=== PATIENT | male | born 1960 | race Caucasian/White ===

== ENCOUNTER 2017-12-01 18:20 | Outpatient (CLI) | payer OTHER ==
[~2017-12-01] VITALS: Ht 177.8 cm; Wt 81.2 kg
--- NOTE | ~2017-12-01 | OP ---
PATIENT NAME: JOANNE GREEN MEDICAL RECORD: [id number] :60 [facility] ADMISSION DATE:12/01/17 SURGEON: ANGELINA QUESADA MD DATE OF OPERATION: 12/02/2017 PROCEDURES: 1. PTCA stent left circumflex. 2. Selective coronary angiography. INDICATION: Angina and coronary artery disease. PROCEDURE IN DETAIL: After informed consent was obtained and after a detailed description of risks, benefits as well as alternative therapies, the patient elected to proceed with angiogram and angioplasty. The right radial area was prepped and draped in normal sterile fashion. Right radial artery was cannulated via modified Seldinger technique with placement of 6-Cymraes sheath. All catheters exchanged through this sheath. FINDINGS: The left circumflex has 95% stenosis mid vessel. This was addressed with a 2.5 x 18 mm Matt stent. Result was 0% residual stenosis. OVERALL IMPRESSION: Successful percutaneous transluminal coronary angioplasty stent of the left circumflex going from 95% initial stenosis to 0% residual stenosis. TRANSINT:[id number] Voice Confirmation ID: [id number] DOCUMENT ID: [id number] ANGELINA QUESADA MD at 1725 CC: [id number] DICTATION DATE: 12/02/17 1300 HOSPITAL NURSE: 12/02/17 1326 ADM IN [id number] [place] [address]
--- NOTE | ~2017-12-01 | HEMODYNAMI ---
PATIENT:JOANNE GREEN MEDICAL RECORD: [id number] : 60 LOCATION:[facility] D.2114 ADMISSION DATE: 12/01/17 Generatedon:12/02/201713:07 Patient name: JOANNE GREEN Patient #: [id number] SSN: D OB: 1960 Date of study: 12/02/2017 Page: Of Hemodynamic Procedure Report Patient Data Patient Demographics Procedure consent was obtained First Name: JOANNE Gender: Male Last Name: PETER : 1960 [facility] Initial: R Age: 57 year(s) Patient #: [id number] Race: Unknown Additional ID: [id number] Contact details Address: [address] [place] [address] State: [place] City: [place] Zip code: [address] Past Medical History Allergies: No known allergies Admission Admission Data Admission Date: 12/01/2017 Admission Time: 18:20 Room #: D.2114 Lab Results Lab Result Date: 11/26/2017 Lab Result Time: 0:00 Biochemistry Name Units Result Min Max BUN mg/dl 11 --(-*--)-- 7 18 Creatinine mg/dl 0.9 --(-*--)-- 0.6 1.3 CBC Name Units Result Min Max Hemoglobin g/dl 14.9 --(-*--)-- 13.5 17.5 Procedure Procedure Types Cath Procedure PCI Procedure Coronary Stent Coronary Stent Initial Procedure Description Procedure Date Procedure Date: 12/02/2017 Procedure Start Time: 12:53 Procedure End Time: 13:02 Procedure Staff Name Function Leticia Medel RT Scrub Roberth Doyle RN Nurse Joel Cheung MD Performing Physician Shawna Kraft RT Monitor Procedure Data Cath Procedure Fluoroscopy Diagnostic fluoroscopy Total fluoroscopy Time: 2.7 time: 2.7 min min Diagnostic fluoroscopy Total fluoroscopy dose: 408 dose: 408 mGy mGy Contrast Material Contrast Material Type Amount (ml) Isovue 370 0 Isovue 300 53 Entry Location Entry Primary Successful Side Size Upsize Upsize Entry Closure Cadet ccessful Closure Location (Fr) 1 (Fr) 2 (Fr) Remarks Device Remarks Radial Right 6 Fr Manual artery Short Compression Estimated blood loss: 10 ml Procedure Complications No complications Procedure Medications Medication Administration Route Dosage Oxygen NC 2 l/min Lidocaine 2% added to field 20 Heparin Flush Bag added to field 2 bags (1000units/500ml NS) 0.9% NaCl I.V. 100 ml/hr Plavix P.O. 75 mg Versed I.V. 2 mg Fentanyl I.V. 100 mcg Heparin Bolus I.V. 4000 units Versed I.V. 2 mg Fentanyl I.V. 100 mcg Fentanyl I.V. 50 mcg Fentanyl I.V. 50 mcg Radial Cocktail I.A. 1 syringe (Verapomil 2mg/Nitro 400mcg/Heparin 1500units) Hemodynamics Rest HGB: 14.9 (g/dl) Heart Rate: 74 (bpm) Snapshots Pre Cath Intra NCS Post Cath Vital Signs Time Heart Resp SPO2 etCO2 NIBP (mmHg) Rhythm Pain Sedation Rate (ipm) (%) (mmHg) Status Level (bpm) 12:13:10 84 16 94 23.2 120/87(105) NSR 0 (11) 10(A) , No pain 12:17:18 78 17 95 18 137/87(121) NSR 0 (11) 10(A) , No pain 12:21:30 84 16 94 20.2 120/68(101) NSR 0 (11) 10(A) , No pain 12:25:40 89 17 94 23.2 102/76(91) NSR 0 (11) 10(A) , No pain 12:29:43 77 16 94 9.7 113/76(99) NSR 0 (11) 10(A) , No pain 12:33:51 71 19 94 15.7 124/76(102) NSR 0 (11) 10(A) , No pain 12:38:05 82 18 95 34.5 115/70(95) NSR 0 (11) 10(A) , No pain 12:42:11 80 15 94 26.2 127/84(102) NSR 0 (11) 10(A) , No pain 12:53:13 83 15 93 44.2 120/68(88) NSR 0 (11) 9(A) , No pain 12:47:17 86 15 93 45.7 110/81(89) NSR 0 (11) 9(A) , No pain 13:04:07 81 16 94 44.2 106/68(92) NSR 0 (11) 10(A) , No pain Medications Time Medication Route Dose Verified Delivered Reason Not es Effectiveness by by 12:25:44 Oxygen NC 2 l/min Joel Leep used for Jonatan Doyle RN procedure 12:27:05 Heparin Flush added 2 bags Joel Maldonado used for Bag to Jonatan Cheung MD procedure (1000units/500ml field NS) 12:27:15 0.9% NaCl I.V. 100ml/hr Joel Lepe Per physician Jonatan Doyle RN 12:27:58 Lidocaine 2% added 20ml Joel Maldonado for local to vial Jonatan Cheung MD anesthetic field 12:28:23 Plavix P.O. 75 mg Joel Lepe for Jonatan Doyle RN antiplatelet therapy 12:42:25 Versed I.V. 2 mg Joel Lepe for sedation Jonatan Doyle RN 12:42:31 Fentanyl I.V. 100 mcg Joel Lepe for sedation Jonatan Doyle RN 12:48:46 Versed I.V. 2 mg Joel Lepe for sedation Jonatan Doyle RN 12:48:49 Fentanyl I.V. 100 mcg Joel Lepe for sedation Jonatan Doyle RN 12:50:16 Radial Cocktail I.A. 1 oJel Maldonado for (Verapomil syringe Jonatan Cheung MD vasodilation 2mg/Nitro 400mcg/Heparin 1500units) 12:51:04 Fentanyl I.V. 50 mcg Joel Lepe for sedation Jonatan Doyle RN 12:52:07 Heparin Bolus I.V. 4000 Joel Lepe for rosalio ified units Jonatan Doyle RN anticoagulation with dr cheung 13:02:05 Fentanyl I.V. 50 mcg Joel Lepe for sedation Jonatan Doyle RN Procedure Log Time Note 12:08:16 Time tracking: Regular hours (M-F 7:00 - 5:00) 12:08:16 Shawna ALMEIDA(R) sent for patient. Start room use. 12:08:20 Plan of Care:Hemodynamics will remain stable., Cardiac rhythm will remain stable., Comfort level will be maintained., Respiratory function will remain adequate., Patient/ family verbilizes understanding of procedure., Procedure tolerated without complication., Recovers from procedure without complications.. 12:08:25 Patient received from Med II to CCL 2 Alert and oriented. Tansferred to table in Supine position. 12:08:26 Correct patient and procedure confirmed by team. 12:08:27 ECG and BP/O2 sat monitors applied to patient. 12:08:29 Signed procedure consent form obtained from patient. 12:08:30 Vital chart was started 12:11:58 Baseline sample Acquired. 12:12:05 Rhythm: sinus rhythm 12:12:08 Full Disclosure recording started 12:12:18 H&P Date Dictated: 12/01/2017 Within 30 days and on chart.. 12:12:20 Pre-procedure instructions explained to patient. 12:12:23 Patient NPO since Midnight. 12:12:30 Patient allergic to No known allergies 12:12:33 Is the patient allergic to Iodine/contrast media? No. 12:12:36 Was the patient premedicated? Yes 12:12:37 Is patient on blood thinner?Yes 12:12:41 ACC The patient was administered the following blood thiners within the last 24 hours: ACCPlavix 12:12:44 Patient diabetic? No. 12:12:46 Snore? Yes 12:12:49 Sleep apnea? No 12:12:55 Dentures? No ? 12:13:05 Patient pain scale 0/10 pressure. 12:13:14 IV patent on arrival in left forearm with 0.9% NaCl at O. 12:13:19 Lab results completed and on chart. 12:13:23 Right Radial & Right Groin area was prepped with chlora-prep and draped in sterile fashion 12:13:24 Alarms reviewed by R. N. 12:13:25 Sharps counted by scrub and verified by R.N. 12:13:26 Physician paged 12:25:44 Oxygen 2 l/min NC was administered by Roberth Doyle RN; used for procedure; 12:27:05 Heparin Flush Bag (1000units/500ml NS) 2 bags added to field was administered by Joel Cheung MD; used for procedure; 12:27:15 0.9% NaCl 100ml/hr I.V. was administered by Roberth Dyole RN; Per physician; 12:27:58 Lidocaine 2% 20ml vial added to field was administered by Joel Cheung MD; for local anesthetic; 12:28:23 Plavix 75 mg P.O. was administered by Roberth Doyle RN; for antiplatelet therapy; 12:35:05 Physician arrived 12:35:06 --------ALL STOP TIME OUT------ 12:35:07 Final Timeout: patient, procedure, and site verified with staff and physician. All members of the team are in agreement. 12:35:22 Right Radial & Right Groin site verified by team. 12:35:27 Physical assessment completed. ASA score P 2 - A patient with mild systemic disease as per Joel Cheung MD. 12:35:31 Sedation plan: IV Moderate Sedation Medication:Versed, Fentanyl 12:36:07 Zero performed for pressure channel P1 12:36:30 Use device set Femoral Dx 12:36:33 Medline Cath Pack ([id number]) opened to sterile field. 12:36:33 Bag Decanter (2002S) opened to sterile field. 12:36:33 ACIST Syringe (58545) opened to sterile field. 12:36:34 DIAGNOSTIC WIRE .035 260cm J wire (948405) opened to sterile field. 12:36:35 ACIST Hand Control (47833) opened to sterile field. 12:36:36 ACIST Manifold (11509) opened to sterile field. 12:36:37 DIAGNOSTIC Multipack 5Fr catheter set (KG7508) opened to sterile field. 12:36:38 Tegaderm 4 x 4 (1626W) opened to sterile field. 12:37:06 SHEATH 6Fr Prelude Radial ([id number]) opened to sterile field. 12:37:21 CHOICE PT Extra Support 182cm wire ([id number]) opened to sterile field. 12:37:21 INFLATOR Merit BasixCompak (FH8849) opened to sterile field. 12:42:25 Versed 2 mg I.V. was administered by Roberth Doyle RN; for sedation; 12:42:31 Fentanyl 100 mcg I.V. was administered by Roberth Doyle RN; for sedation; 12:48:46 Versed 2 mg I.V. was administered by Roberth Doyle RN; for sedation; 12:48:49 Fentanyl 100 mcg I.V. was administered by Roberth Doyle RN; for sedation; 12:50:16 Radial Cocktail (Verapomil 2mg/Nitro 400mcg/Heparin 1500units) 1 syringe I.A. was administered by Joel Cheung MD; for vasodilation; 12:51:04 Fentanyl 50 mcg I.V. was administered by Roberth Doyle RN; for sedation; 12:52:07 Heparin Bolus 4000 units I.V. was administered by Roberth Doyle RN; for anticoagulation; verified with dr cheung 12:53:13 Procedure started. 12:53:14 Full Disclosure recording started 12:53:25 Local anesthetic to right radial artery with Lidocaine 2% by Joel Cheung MD.INITIAL ACCESS ONLY 12:53:36 A 6 Fr Short sheath was inserted into the Right Radial artery 12:53:55 6 Fr XB 3.5 guide catheter was inserted over the wire 12:53:59 Choice pt wire advanced. 12:54:12 Wire advanced across lesion. 12:55:44 Inflate balloon Inflation number: 1 A EUPHORA 2.0 x 15 Balloon ([id number]) was prepped and advanced across the Mid CX, then inflated to 13 ROXANNE for 0:14 (min:sec). 12:56:07 Balloon removed over the wire. 12:57:05 Place stent Inflation Number: 2 A DONTAE RX 2.5 x 18 stent ([id number]) was prepped and advanced across the Mid CX. The stent was deployed at 11 ROXANNE for 0:11 (min:sec). 12:58:49 TR BAND Standard ([id number]) opened to sterile field. 12:59:03 Wire removed. 12:59:05 Guide catheter removed. 12:59:18 Sheath removed intact; hemostasis achieved with Manual Compression to the Right Radial artery. 12:59:20 Procedure ended.(Physican Out) 12:59:34 Fluoroscopy time 02.70 minutes. 12:59:43 Fluoroscopy dose: 408 mGy 12:59:43 Flurop Dose total: 408 12:59:49 Contrast amount:Isovue 370 0ml. 12:59:53 Contrast amount:Isovue 300 53ml. 12:59:54 Sharps counted by scrub and verified by R.N. 12:59:59 TR band inflated with 10cc of air. 13:00:00 Insertion/operative site no bleeding no hematoma. 13:00:02 Post Procedure Pulses reassessed and unchanged 13:00:07 Post-procedure physical assessment completed. ASA score P 2 - A patient with mild systemic disease as per Joel Cheung MD. 13:00:11 Post procedure rhythm: unchanged. 13:00:18 Estimated blood loss: 10 ml 13:00:23 Post procedure instruction explained to patient.Patient verbalizes understanding. 13:00:35 Procedure type changed to Cath procedure, PCI procedure, Coronary Stent, Coronary Stent Initial 13:00:40 Procedure and supply charges have been captured, reviewed, submitted and are correct. 13:01:43 Procedure Complication : No complications 13:02:05 Fentanyl 50 mcg I.V. was administered by Roberth Doyle RN; for sedation; 13:02:46 See physician's report for complete and final results. 13:02:49 Report given to Pre/Post Procedure Room. 13:02:54 Patient transfered to Pre/Post Procedure Room with Stretcher. 13:02:57 Procedure ended. 13:02:57 Full Disclosure recording stopped 13:03:00 End room use (Document Last) Intervention Summary Intervention Notes Time ActionType Lesion and Equipment Used Action# Pressure Duration Attributes 12:55:44 Inflate Mid CX EUPHORA 2.0 x 1 13 00:14 balloon 15 Balloon ([id number]) 12:57:05 Place stent Mid CX DONTAE RX 2.5 x 2 11 00:11 18 stent ([id number]) Device Usage Item Name Manufacture Quantity Catalog Number Hospital Part Current Minimal Lot# / Charge Number Stock Stock Serial# Code ACIST Syringe Acist 1 92598 021346 334758 789182 20 (04774) Medical Systems Inc Bag Decanter Microtek 1 2001S 933194 57316 297684 5 () Medical Inc. Medline Cath Cardinal 1 [id number] 773493 60628 133952 5 [facility]icare [facility] ([id number]) DIAGNOSTIC WIRE [facility] [place] 1 821329 569019 250689 829296 30 .035 260cm J wire (454800) ACIST Hand Acist 1 42108 793637 954677 484424 5 Control (54364) Medical Systems Inc ACIST Manifold Acist 1 18135 434062 387575 817115 5 (50871) Medical Systems Inc DIAGNOSTIC Cardinal 1 GI3804 939520 48189 262092 30 Multipack 5Fr Health catheter set (DH8169) Tegaderm 4 x 4 3M 1 1626W 539123 852835 592241 5 (1626W) SHEATH 6Fr Merit 1 [id number] 004065 711427 774307 5 Prelude Radial Medical ([id number]) INFLATOR Merit Merit 1 UL0453 111597 125644 613549 15 [employer]Rock[employer] Medical (FJ7729) CHOICE PT Extra [place] 1 [id number] 151847 223514 966521 5 Support 182cm Scientific wire ([id number]) EUPHORA 2.0 x Medtronic 1 [id number] 437660 554189 767515 5 [id number] 15 Balloon ([id number]) DONTAE RX 2.5 x Medtronic 1 [id number] 665126 2818649 102939 5 [id number] 18 stent ([id number]) TR BAND Terumo 1 [id number] 286335 514074 814822 40 Standard ([id number]) Signature Audit [place] Stage Time Signature Unsigned Intra-Procedure 12/02/2017 Shawna Kraft 1:06:57 PM RT(R) Signatures Monitor : Shawna Kraft Signature : RT Date : Time : [address] [place] [address]
--- NOTE | ~2017-12-01 | DS ---
PATIENT:JOANNE DOSS :60 MEDICAL RECORD: [id number] DISCHARGE SUMMARY ADMISSION DATE: 12/01/17 DISCHARGE DATE: DISCHARGE DIAGNOSES: 1. Angina. 2. Coronary artery disease. 3. PTCA and stent of left circumflex this admission. HOSPITAL COURSE: Mr. Doss presents with anginal symptomatology. He has a known 95% stenosis of the left circumflex. Underwent successful PTCA and stent of the left circumflex. Discharged home with no change in his medications as he is already on aspirin and Plavix. Will follow up with [facility] in 1 month. TRANSINT:[id number] Voice Confirmation ID: [id number] DOCUMENT ID: [id number] ANGELINA QUESADA MD at 1725 CC: [id number] DICTATION DATE: 12/02/17 1259 SENIOR MECHANICAL ENGINEER: 12/02/17 1329 ADM IN [facility] [address] [id number]
[~2017-12-01 18:20] MED LIST: ASPIRIN81 MG PO; PLAVIX75 MG PO; PRAVACHOL40 MG PO
[2017-12-01 19:00] VITALS: BP 115/62
[2017-12-02 00:02] VITALS: Ht 177.8 cm; Wt 81.2 kg
[2017-12-02 04:00] VITALS: BP 120/74
[2017-12-02 08:44] VITALS: BP 107/83
[2017-12-02 11:50] VITALS: BP 134/74
[2017-12-02 12:09] LABS: BASOPHILS 0.5 % (0-2); EOSINOPHILS 5.9 % (0-7); IMMATURE GRANULOCYTES 0.1 % (0-5); LYMPHOCYTES 27.8 % (15-50); MCH 31.6 pg (26.0-34.0); MCHC 34.1 g/dL (31.0-37.0); MCV 92.8 fL (80.0-100.0); MEAN PLATELET VOLUME 10.3 fL (7.4-10.4); MONOCYTES 9.4 % (2-11); NEUTROPHILS 56.3 % (40-80); PLATELET COUNT 329 10x3/uL (130-400); RBC 4.74 10x6/uL (4.20-6.10); RDW 13.6 % (11.5-14.5); WBC 8.5 10x3/uL (4.8-10.8)
[2017-12-02 12:24] LABS: CALC OSMOLALITY 263 mosm/kg (275-300); CALCIUM 9.5 mg/dL (8.5-10.1); CARBON DIOXIDE 22.1 mmol/L (21.0-32.0); CHLORIDE - SERUM 100 mmol/L (98-107); CREATININE - SERUM 0.8 mg/dL (0.6-1.3); GLUCOSE 91 mg/dL (74-106); SODIUM 131 mmol/L (136-145); UREA NITROGEN 15 mg/dL (7-18); eGFR NON AFRICAN AMERICAN > 90 mL/min (90-120)
[2017-12-02 12:30] LABS: POTASSIUM - SERUM 4.1 mmol/L (3.5-5.1)
== END 2017-12-02 17:55 | disposition home or self-care (01) ==
LOC: OBSVTIME → D.OPS 18:20 → D.M2 18:20 → D.CLR 18:20 → D.MS 18:20 → OBSVTIME 18:21 → D.MS 18:25 → D.M2 18:25 → D.CLR 12-02 13:11 → D.M2 12-02 13:11 → D.OPS 12-02 17:55 → D.CLR 12-02 17:55
PROVIDERS: Internal Medicine Interventional Cardiology
DX: I25.110 Atherosclerotic heart disease of native coronary artery with unstable angina pectoris (principal); Z95.5 Presence of coronary angioplasty implant and graft; E78.5 Hyperlipidemia, unspecified; F17.200 Nicotine dependence, unspecified, uncomplicated; Z79.82 Long term (current) use of aspirin; Z79.02 Long term (current) use of antithrombotics/antiplatelets; Z79.899 Other long term (current) drug therapy; Z01.812 Encounter for preprocedural laboratory examination

== ENCOUNTER 2018-09-29 14:37 | Inpatient (IN) | payer OTHER ==
[2018-09-29] VITALS (9 sets, daily range): BP systolic 119–143; BP diastolic 74–93; BMI 26.8
[~2018-09-29] VITALS: Ht 177.8 cm; Wt 78.1 kg
--- NOTE | ~2018-09-29 | EC ---
PATIENT:JOANNE GREEN DATE OF SERVICE: 09/29/18 SEX: M MEDICAL RECORD: [id number] DATE OF : 60 [facility] AGE OF PATIENT: 58 ADMISSION DATE: 09/29/18 REFERRING PHYSICIAN: INTERPRETING PHYSICIAN: ANGELINA CHEUNG MD ECHOCARDIOGRAM REPORT ECHO CHARGES 4 ECHO COMPLETE Date: 09/29/18 CLINICAL DIAGNOSIS: BILATERAL PE'S ECHOCARDIOGRAPHIC MEASUREMENTS (adult normal given) AC root (d.<3.7cm) 3.9 cm LV Septum d (<1.2 cm> 1.2 cm Valve Excursion 2.1 cm LV Septum (systole) 1.8 cm Left Atria (s.<4.0cm> 4.2 cm LVPW d(<1.2cm) 1.8 cm RV (d.<2.3cm) 4.5 cm LVPW (sytole) 2.1 cm LV diastole(<5.6CM) 6.7 cm MV E-F(>70mm/sec) cm LV systole 5.0 cm LVOT Diameter 2.4 cm MV exc.(>10mm) cm Est.ejection fraction (50-75%) % DOPPLER: LVIT cm/sec A 75.0 cm/sec E 87.0 cm/sec LA cm/sec RVSP 41 mmHg LVOT 134 cm/sec AOP1/2T m/s Asc. Ao 180 cm/sec RVOT cm/sec RA cm/sec PA cm/sec AV Gradient Peak 12.98mmHg AV Mean 6.53 mmHg AV Area 4.0 cm MV Gradient Peak 4.89 mmHg MV Mean 1.89 mmHg MV Area cm COMMENTS: Garbage Truck Driver: Emiliana ROBLES Turning Lathe Tender: 1 Dr. Cheung TAPE# PACS Pericardial Effusion N DATE OF SERVICE: 09/30/2018 PROCEDURE: Echocardiogram. FINDINGS: 1. Left ventricular chamber size is mildly dilated. Left ventricular systolic function is preserved. Overall ejection fraction estimated at 55%. 2. Left atrium, right atrium, right ventricular chamber sizes are as well mildly dilated with the left atrial size being 4.2 cm. 3. Valvular structures have normal structure and motion. ECHOCARDIOGRAM REPORT [id number] JOANNE GREEN 4. Doppler interrogation reveals mild mitral regurgitation, mild tricuspid regurgitation, no other valvular insufficiency or stenosis. Pulmonary systolic pressure is estimated 41 mmHg. 5. No cardiac source of neurologic emboli. TRANSINT:[id number] Voice Confirmation ID: [id number] DOCUMENT ID: [id number] ANGELINA CHEUNG MD CC: [id number] DICTATION DATE: 09/30/18 1128 MARKETING ROTATION ASSOCIATE: 09/30/18 1157 ADM IN [facility] [address] [id number]
[2018-09-29] MEDS ORDERED: HYDROCODON-ACE1 EA10 PO (14:50)
[2018-09-29] MEDS ORDERED: REVLIMID25 MG PO (14:51)
[2018-09-29] MEDS ORDERED: DECADRON4 MG PO (14:52)
--- NOTE | 2018-09-29 15:17 | NUR ---
ABG DONE BY RT, PATIENT WEENED DOWN TO [address] L[address] VIA NC PER DR. LOPEZ.
[2018-09-29 15:40] LABS: BASOPHILS 0.4 % (0-2); EOSINOPHILS 0 % (0-7); HEMATOCRIT 32.3 % (42.0-54.0); HEMOGLOBIN 10.1 g/dL (13.5-17.5); IMMATURE GRANULOCYTES 0.4 % (0-5); LYMPHOCYTES 10.9 % (15-50); MCH 29.4 pg (26.0-34.0); MCHC 31.3 g/dL (31.0-37.0); MCV 94.2 fL (80.0-100.0); MEAN PLATELET VOLUME 9.4 fL (7.4-10.4); MONOCYTES 2.7 % (2-11); NEUTROPHILS 85.6 % (40-80); PLATELET COUNT 332 10x3/uL (130-400); RBC 3.43 10x6/uL (4.20-6.10); RDW 14.4 % (11.5-14.5); WBC 7.5 10x3/uL (4.8-10.8)
[2018-09-29 15:57] LABS: INR 1.07 (0.85-1.17); PROTIME 13.4 SECONDS (11.6-15.0)
[2018-09-29 15:58] LABS: APTT 48.5 SECONDS (22.8-39.4)
[2018-09-29 16:04] LABS: ALBUMIN 3.1 g/dL (3.4-5.0); ALKALINE PHOSPHATASE 208 U/L (46-116); ALT (SGPT) 32 U/L (10-68); BILIRUBIN - TOTAL 0.45 mg/dL (0.2-1.3); CALC OSMOLALITY 276 mosm/kg (275-300); CALCIUM 7.4 mg/dL (8.5-10.1); CHLORIDE - SERUM 101 mmol/L (98-107); CREATININE - SERUM 0.9 mg/dL (0.6-1.3); POTASSIUM - SERUM 4.3 mmol/L (3.5-5.1); PROTEIN - SERUM 6.8 g/dL (6.4-8.2); SODIUM 136 mmol/L (136-145); UREA NITROGEN 22 mg/dL (7-18); eGFR NON AFRICAN AMERICAN > 90 mL/min (90-120)
[2018-09-29 16:09] LABS: GLUCOSE 140 mg/dL (74-106)
--- NOTE | 2018-09-29 16:23 | NUR ---
PTT 48.5, WILL RECHECK IN [address] LOPEZ.
[2018-09-29 16:27] LABS: TROPONIN-I 0.124 ng/mL (0.000-0.060)
[2018-09-29 17:00] LABS: HEMATOCRIT 33.1 % (42.0-54.0); HEMOGLOBIN 10.3 g/dL (13.5-17.5); MCH 29.5 pg (26.0-34.0); MCHC 31.1 g/dL (31.0-37.0); MCV 94.8 fL (80.0-100.0); MEAN PLATELET VOLUME 9.5 fL (7.4-10.4); RBC 3.49 10x6/uL (4.20-6.10); RDW 14.4 % (11.5-14.5); WBC 8.1 10x3/uL (4.8-10.8)
--- NOTE | 2018-09-29 17:20 | NUR ---
ICU WILL START HEPRIN DRIP WHEN RESULT OF PTT RETURNS.
[2018-09-29 17:35] LABS: INR 1.08 (0.85-1.17); PROTIME 13.5 SECONDS (11.6-15.0)
[2018-09-29 17:36] LABS: APTT 29.1 SECONDS (22.8-39.4)
--- NOTE | 2018-09-29 18:00 | NUR ---
PT ASSISTED INTO ICU BED FROM ER, PT AWAKE AND ALERT WITH LABORED BREATHING AND SOB, MONITORS ON AND WORKING, DR CHAVEZ CONSULTED AND MADE AWARE OF CONSULT. WILL CONTINUE TO OBSERVE.
--- NOTE | 2018-09-29 18:20 | MORECARE ---
CASE MANAGEMENT DISCHARGE SUMMARY PATIENT: JOANNE GREEN UNIT: [id number] ADM DATE: 09/29/18 AGE: 58 : 60 SEX: M ROOM/BED: D.2304 AUTHOR: ANJELICA BLANDON PHYSICIAN: REFERRING PHYSICIAN: SONIA CHRISTIANSON MD DATE OF SERVICE: 09/29/18 Discharge Plan Patient Name: JOANNE GREEN [facility] : 1960 Planned Disposition: Anticipated Discharge Date: Discharge Date: Expected LOS: Initial Reviewer: [email or web address] Initial Review Date: 09/29/2018 Generated: 09/29/18 7:20 pm Patient Name: JOANNE GREEN Page [id number] at 1820 All edits/amendments must be made on the electronic document DICTATION DATE: 09/29/181819 WIRE TEMPERER: CLINTON 09/29/181819 RPT#: [id number] NM DATE: STATUS: ADM IN [facility] [address] [place] [address] END OF REPORT
--- NOTE | 2018-09-29 21:55 | NUR ---
SANDWICH TRAY GIVEN PER PT REQUEST, VSS, DENIES OTHER NEEDS AT THIS TIME
[2018-09-30] VITALS (17 sets, daily range): BP systolic 102–139; BP diastolic 67–82; BMI 24.7
[2018-09-30 04:11] LABS: BASOPHILS 0.3 % (0-2); EOSINOPHILS 0.3 % (0-7); HEMATOCRIT 30.6 % (42.0-54.0); HEMOGLOBIN 9.4 g/dL (13.5-17.5); IMMATURE GRANULOCYTES 0.5 % (0-5); LYMPHOCYTES 19.9 % (15-50); MCH 29.5 pg (26.0-34.0); MCHC 30.7 g/dL (31.0-37.0); MCV 95.9 fL (80.0-100.0); MEAN PLATELET VOLUME 9.6 fL (7.4-10.4); MONOCYTES 12.2 % (2-11); NEUTROPHILS 66.8 % (40-80); PLATELET COUNT 306 10x3/uL (130-400); RBC 3.19 10x6/uL (4.20-6.10); RDW 14.5 % (11.5-14.5); WBC 7.9 10x3/uL (4.8-10.8)
[2018-09-30 04:55] LABS: CALC OSMOLALITY 285 mosm/kg (275-300); CHLORIDE - SERUM 103 mmol/L (98-107); GLUCOSE 98 mg/dL (74-106); MAGNESIUM - SERUM 2.2 mg/dL (1.8-2.4); PHOSPHOROUS 2.9 mg/dL (2.5-4.9); POTASSIUM - SERUM 4.3 mmol/L (3.5-5.1); SODIUM 141 mmol/L (136-145); TROPONIN-I 0.058 ng/mL (0.000-0.060); UREA NITROGEN 26 mg/dL (7-18); eGFR NON AFRICAN AMERICAN 81 mL/min (90-120)
[2018-09-30 05:17] LABS: CALCIUM 6.9 mg/dL (8.5-10.1)
[2018-09-30 09:06] LABS: % SATURATION 9 % (15-55); IRON 27 ug/dl (35-150); TOTAL IRON BIND CAPACITY 280 ug/dl (260-445); UNSAT IRON BIND CAPACITY 253 ug/dl (150-375)
--- NOTE | 2018-09-30 20:45 | MORECARE ---
CASE MANAGEMENT DISCHARGE SUMMARY PATIENT: JOANNE GREEN UNIT: [id number] ADM DATE: 09/29/18 AGE: 58 : 60 SEX: M ROOM/BED: D.2304 AUTHOR: ANJELICA BLANDON PHYSICIAN: REFERRING PHYSICIAN: SONIA CHRISTIANSON MD DATE OF SERVICE: 09/30/18 Discharge Plan Patient Name: JOANNE GREEN [facility] [facility] 1960 Planned Disposition: Home Anticipated Discharge Date: Discharge Date: Expected LOS: Initial Reviewer: [email or web address] Initial Review Date: 09/29/2018 Generated: 09/30/18 9:44 pm Last DP export: 09/29/18 5:20 p Patient Name: JOANNE GREEN Page [id number] at 2045 All edits/amendments must be made on the electronic document DICTATION DATE: 09/30/182043 SPIKE MACHINE FEEDER: CLINTON 09/30/182043 RPT#: [id number] DC DATE: STATUS: ADM IN [facility] [address] [place] [address] END OF REPORT
--- NOTE | 2018-09-30 20:51 | MORECARE ---
CASE MANAGEMENT DISCHARGE SUMMARY PATIENT: JOANNE GREEN UNIT: [id number] ADM DATE: 09/29/18 AGE: 58 : 60 SEX: M ROOM/BED: D.2304 AUTHOR: ANJELICA BLANDON PHYSICIAN: REFERRING PHYSICIAN: SONIA CHRISTIANSON MD DATE OF SERVICE: 09/30/18 Discharge Plan Patient Name: JOANNE GREEN [facility] [facility] 1960 Planned Disposition: Home Anticipated Discharge Date: Discharge Date: Expected LOS: Initial Reviewer: [email or web address] Initial Review Date: 09/29/2018 Generated: 09/30/18 9:51 pm DCPIA - Discharge Planning Initial Assessment Updated by [email or web address]: Evi Guzman on 09/30/18 8:46 pm * Is the patient Alert and Oriented? Yes * How many steps to enter\exit or inside your home? * PCP Brayan Newell * Pharmacy [facility] * Preadmission Environment Home Alone * ADLs Independent * Other Equipment walker, shower chair, elevated toilet, * List name and contact numbers for known caregivers / representatives who currently or will assist patient after discharge: Jaime Isaac [phone] * Verbal permission to speak to the caregivers and representatives has been obtained from the patient. N/A * Community resources currently utilized Home Health * Please name any agencies selected above. unknown provider - only evaluated thus far * Additional services required to return to the preadmission environment? No * Can the patient safely return to the preadmission environment? Yes * Has this patient been hospitalized within the prior 30 days at any hospital? Yes Last DP export: 09/30/18 7:45 pm Patient Name: JOANNE GREEN Page [id number] at 2050 All edits/amendments must be made on the electronic document DICTATION DATE: 09/30/182050 VIRTUALIZATION CONSULTANT: [place] 09/30/182050 RPT#: [id number] DC DATE: STATUS: ADM IN [facility] [address] [place] [address] END OF REPORT
--- NOTE | 2018-09-30 20:58 | MORECARE ---
CASE MANAGEMENT DISCHARGE SUMMARY PATIENT: JOANNE GREEN UNIT: [id number] ADM DATE: 09/29/18 AGE: 58 : 60 SEX: M ROOM/BED: D.2304 AUTHOR: BARBER,DOC PHYSICIAN: REFERRING PHYSICIAN: SONIA CHRISTIANSON MD DATE OF SERVICE: 09/30/18 Discharge Plan Patient Name: JOANNE GREEN Facility: [facility]:[place] : 1960 Planned Disposition: Home Anticipated Discharge Date: Discharge Date: Expected LOS: Initial Reviewer: [email or web address] Initial Review Date: 09/29/2018 Generated: 09/30/18 9:57 pm Comments DCP- Discharge Planning Updated by [email or web address]: Evi Guzman on 09/30/18 7:[address] Patient Name: JOANNE GREEN Admission Status: ER Accout number: [id number] Admission Date: 09-29-2018 : 1960 Admission Diagnosis:OTHER PULMONARY EMBOLISM WITHOUT ACUTE COR PULMONALE Attending: SONIA CHRISTIANSON Current LOS: 1 Anticipated DC Date: Planned Disposition: Home Primary Insurance: [employer] O POS Discharge Planning Comments: CM met with patient at bedside about discharge planning / needs. Patient states he lives alone. Patient states he plans to discharge to his home. States he will have family transport him home upon discharge. Patient states he has home health come to evaluate him but they haven't started yet. He doesn't recall which provider has evaluated him. If patient is still requiring 02 he may need walk test. Denies any discharge needs or concerns at this time.CM will continue to follow and assist as needed with discharge planning / needs. Administration Assistant: Evi Guzman DCPIA - Discharge Planning Initial Assessment Updated by [email or web address]: Evi Guzman on 09/30/18 8:46 pm * Is the patient Alert and Oriented? Yes * How many steps to enter\exit or inside your home? * PCP Brayan Newell * Pharmacy [facility] * Preadmission Environment Home Alone * ADLs Independent * Other Equipment walker, shower chair, elevated toilet, * List name and contact numbers for known caregivers / representatives who currently or will assist patient after discharge: Jaime Isaac [phone] * Verbal permission to speak to the caregivers and representatives has been obtained from the patient. N/A * Community resources currently utilized Home Health * Please name any agencies selected above. unknown provider - only evaluated thus far * Additional services required to return to the preadmission environment? No * Can the patient safely return to the preadmission environment? Yes * Has this patient been hospitalized within the prior 30 days at any hospital? Yes Last DP export: 09/30/18 7:51 pm Patient Name: JOANNE GREEN Page 49542 at 2058 All edits/amendments must be made on the electronic document DICTATION DATE: 09/30/182056 MARINE FIREFIGHTER: [place] 09/30/182056 RPT#: [id number] DC DATE: STATUS: ADM IN [facility] [address] [place] [address] END OF REPORT
[2018-10-01] VITALS (8 sets, daily range): BP systolic 107–120; BP diastolic 55–75; Ht 177.8 cm; Wt 78.1 kg
[2018-10-01 04:33] LABS: BASOPHILS 0.3 % (0-2); EOSINOPHILS 0.3 % (0-7); HEMOGLOBIN 8.7 g/dL (13.5-17.5); IMMATURE GRANULOCYTES 0.5 % (0-5); LYMPHOCYTES 18.6 % (15-50); MCH 29.8 pg (26.0-34.0); MCHC 31.1 g/dL (31.0-37.0); MCV 95.9 fL (80.0-100.0); MEAN PLATELET VOLUME 9.9 fL (7.4-10.4); MONOCYTES 6.3 % (2-11); PLATELET COUNT 285 10x3/uL (130-400); RBC 2.92 10x6/uL (4.20-6.10); RDW 14.6 % (11.5-14.5); WBC 7.7 10x3/uL (4.8-10.8)
[2018-10-01 05:02] LABS: ALBUMIN 2.9 g/dL (3.4-5.0); ALKALINE PHOSPHATASE 155 U/L (46-116); ALT (SGPT) 26 U/L (10-68); BILIRUBIN - TOTAL 0.21 mg/dL (0.2-1.3); CALC OSMOLALITY 282 mosm/kg (275-300); CARBON DIOXIDE 28.5 mmol/L (21.0-32.0); CHLORIDE - SERUM 103 mmol/L (98-107); CREATININE - SERUM 0.8 mg/dL (0.6-1.3); GLUCOSE 124 mg/dL (74-106); POTASSIUM - SERUM 4.3 mmol/L (3.5-5.1); PROTEIN - SERUM 6.1 g/dL (6.4-8.2); SODIUM 139 mmol/L (136-145); UREA NITROGEN 25 mg/dL (7-18); eGFR NON AFRICAN AMERICAN > 90 mL/min (90-120)
[2018-10-01 05:14] LABS: CALCIUM 6.2 mg/dL (8.5-10.1)
[2018-10-01 08:17] LABS: FOLATE (FOLIC ACID) - SERUM 15.9 ng/mL (>3.0)
--- NOTE | 2018-10-01 08:29 | NUR ---
UP IN BED EATING BREAKFAST AT THIS TIME. NO ACUTE DISTRESS NOTED. CALL LIGHT IN REACH. WILL CONTINUE PLAN OF CARE.
--- NOTE | 2018-10-01 08:30 | NUR ---
NOTED PHYSICIAN CONSULTS FOR DR QUESADA, DR CHAVEZ, AND DR VILLALOBOS. PHYSICIAN NOTES SEEN BY DR CHAVEZ AND DR QUESADA BUT NONE FROM DR VILLALOBOS. DR VILLALOBOS PAGED AT THIS TIME.
--- NOTE | 2018-10-01 08:38 | NUR ---
DR GARCÍA CLIENT RELATIONS ASSOCIATE FOR DR VILLALOBOS. NOTIFIED OF CONSULT.
--- NOTE | 2018-10-01 11:47 | NUR ---
SOAKING PIT OPERATOR HAS SEEN PT. ORDERS PLACED. ALL QUESTIONS AND CONCERNS ADDRESSED. NO ACUTE DISTRESS NOTED. WILL CONTINUE PLAN OF CARE.
--- NOTE | 2018-10-01 13:12 | NUR ---
PER DR CHRISTIANSON, WILL WATCH H&H. NO NEW ORDERS RECIEVED.
--- NOTE | 2018-10-01 13:37 | NUR ---
REPORT CALLED TO RECIEVING NURSE, WILL TRANSFER PT SHORTLY.
--- NOTE | 2018-10-01 14:20 | NUR ---
PT TRANSFERRED TO 2229 AT THIS TIME VIA WHEELCHAIR ACCOMPANIED BY HOSPITAL STAFF WITH ALL PERSOAL ITEMS. NO ACUTE DISTRESS NOTED. NO FURTHER ACTIONS.
--- NOTE | 2018-10-01 14:20 | NUR ---
PT RECIEVED TO ROOM 2229 VIA W/C. ALERT AND ORIENTED. NO DISTRESS NOTED. O2@2L NC IN PLACE. SALINE LOCK INTACT TO RIGHT FOREARM, EASILY FLUSHED WITH GOOD BLOOD RETURN. DENIES PAIN AT THIS TIME. ORIENTED TO ROOM, CL AND BED CONTROLS. DENIES FURTHER NEEDS AT THIS TIME. CL WITHIN REACH. ENCOURAGED HER TO CALL WITH NEEDS.
--- NOTE | 2018-10-01 19:30 | NUR ---
RECEIVED REPORT, ASSUMED CARE, NO S/S OF DISTRESS NOTED, CALL LIGHT IN REACH, BED LOWEST POSITION, WILL CONTINUE POC
[2018-10-02 02:28] VITALS: BP 116/54
[2018-10-02 04:09] VITALS: BP 116/60
--- NOTE | 2018-10-02 04:48 | NUR ---
I have reviewed this patient and I concur with the Shift Assessment completed by the Licensed Practical Nurse today this shift.
[2018-10-02 05:42] LABS: BASOPHILS 0.1 % (0-2); EOSINOPHILS 0 % (0-7); HEMATOCRIT 28.6 % (42.0-54.0); HEMOGLOBIN 8.9 g/dL (13.5-17.5); IMMATURE GRANULOCYTES 0.4 % (0-5); LYMPHOCYTES 25.1 % (15-50); MCH 29.7 pg (26.0-34.0); MCHC 31.1 g/dL (31.0-37.0); MCV 95.3 fL (80.0-100.0); MEAN PLATELET VOLUME 10.3 fL (7.4-10.4); MONOCYTES 6.6 % (2-11); NEUTROPHILS 67.8 % (40-80); PLATELET COUNT 311 10x3/uL (130-400); RDW 14.4 % (11.5-14.5); WBC 7.5 10x3/uL (4.8-10.8)
[2018-10-02 06:35] LABS: ALBUMIN 2.8 g/dL (3.4-5.0); ALKALINE PHOSPHATASE 134 U/L (46-116); ALT (SGPT) 22 U/L (10-68); BILIRUBIN - TOTAL 0.23 mg/dL (0.2-1.3); CARBON DIOXIDE 29.1 mmol/L (21.0-32.0); CHLORIDE - SERUM 104 mmol/L (98-107); CREATININE - SERUM 0.8 mg/dL (0.6-1.3); GLUCOSE 126 mg/dL (74-106); MAGNESIUM - SERUM 2.2 mg/dL (1.8-2.4); PHOSPHOROUS 1.9 mg/dL (2.5-4.9); POTASSIUM - SERUM 4.1 mmol/L (3.5-5.1); PROTEIN - SERUM 5.7 g/dL (6.4-8.2); SODIUM 137 mmol/L (136-145); eGFR NON AFRICAN AMERICAN > 90 mL/min (90-120)
[2018-10-02 06:36] LABS: CALC OSMOLALITY 277 mosm/kg (275-300); UREA NITROGEN 18 mg/dL (7-18)
[2018-10-02 06:37] LABS: FERRITIN 2275 ng/mL (3-244)
--- NOTE | 2018-10-02 06:40 | NUR ---
CRITICAL CALCIUM OF 6.0, CORRECTED CA IS 8.97
[2018-10-02 08:32] VITALS: BP 114/45
[2018-10-02 12:48] VITALS: BP 118/66
[2018-10-02 17:16] VITALS: BP 118/72
[2018-10-02 20:23] VITALS: BP 126/62
[2018-10-03 00:18] VITALS: BP 126/69
[2018-10-03 04:27] VITALS: BP 136/76
[2018-10-03 07:05] LABS: BASOPHILS 0.1 % (0-2); EOSINOPHILS 2.7 % (0-7); HEMATOCRIT 28.4 % (42.0-54.0); HEMOGLOBIN 8.8 g/dL (13.5-17.5); IMMATURE GRANULOCYTES 0.7 % (0-5); MCH 29.4 pg (26.0-34.0); MONOCYTES 8.8 % (2-11); NEUTROPHILS 44.7 % (40-80); PLATELET COUNT 318 10x3/uL (130-400); RBC 2.99 10x6/uL (4.20-6.10); RDW 14.6 % (11.5-14.5); WBC 8.5 10x3/uL (4.8-10.8)
[2018-10-03 07:17] LABS: CALC OSMOLALITY 289 mosm/kg (275-300); CARBON DIOXIDE 29.7 mmol/L (21.0-32.0); CHLORIDE - SERUM 107 mmol/L (98-107); CREATININE - SERUM 0.8 mg/dL (0.6-1.3); GLUCOSE 91 mg/dL (74-106); PHOSPHOROUS 2.1 mg/dL (2.5-4.9); SODIUM 145 mmol/L (136-145); UREA NITROGEN 15 mg/dL (7-18); eGFR NON AFRICAN AMERICAN > 90 mL/min (90-120)
[2018-10-03 08:05] LABS: POTASSIUM - SERUM 3.4 mmol/L (3.5-5.1)
[2018-10-03 08:06] LABS: CALCIUM 5.7 mg/dL (8.5-10.1)
--- NOTE | 2018-10-03 08:06 | NUR ---
CRITICAL CA LEVEL CALLING RADHA TO ADVISE AND RECEIVE NEW ORDERS
[2018-10-03 08:22] VITALS: BP 130/86
--- NOTE | 2018-10-03 11:39 | MORECARE ---
CASE MANAGEMENT DISCHARGE SUMMARY PATIENT: JOANNE GREEN UNIT: [id number] ADM DATE: 09/29/18 AGE: 58 : 60 SEX: M ROOM/BED: D.2229 AUTHOR: BARBER,DOC PHYSICIAN: REFERRING PHYSICIAN: SONIA CHRISTIANSON MD DATE OF SERVICE: 10/03/18 Discharge Plan Patient Name: JOANNE GREEN Facility: [facility]:[place] : 1960 Planned Disposition: Home Anticipated Discharge Date: Discharge Date: Expected LOS: Initial Reviewer: [email or web address] Initial Review Date: 09/29/2018 Generated: 10/03/18 12:39 pm Comments DCP- Discharge Planning Updated by [email or web address]: Evi Guzman on 09/30/18 7:[address] Patient Name: JOANNE GREEN Admission Status: ER Accout number: [id number] Admission Date: 09-29-2018 : 1960 Admission Diagnosis:OTHER PULMONARY EMBOLISM WITHOUT ACUTE COR PULMONALE Attending: SONIA CHRISTIANSON Current LOS: 1 Anticipated DC Date: Planned Disposition: Home [facility] Discharge Planning Comments: CM met with patient at bedside about discharge planning / needs. Patient states he lives alone. Patient states he plans to discharge to his home. States he will have family transport him home upon discharge. Patient states he has home health come to evaluate him but they haven't started yet. He doesn't recall which provider has evaluated him. If patient is still requiring 02 he may need walk test. Denies any discharge needs or concerns at this time.CM will continue to follow and assist as needed with discharge planning / needs. Principal Biostatistician: Evi Guzman DCPIA - Discharge Planning Initial Assessment Updated by [email or web address]: Evi Guzman on 09/30/18 8:46 pm * Is the patient Alert and Oriented? Yes * How many steps to enter\exit or inside your home? * PCP Brayan Newell * Pharmacy [facility] * Preadmission Environment Home Alone * ADLs Independent * Other Equipment walker, shower chair, elevated toilet, * List name and contact numbers for known caregivers / representatives who currently or will assist patient after discharge: Jaime Isaac [phone] * Verbal permission to speak to the caregivers and representatives has been obtained from the patient. N/A * Community resources currently utilized Home Health * Please name any agencies selected above. unknown provider - only evaluated thus far * Additional services required to return to the preadmission environment? No * Can the patient safely return to the preadmission environment? Yes * Has this patient been hospitalized within the prior 30 days at any hospital? Yes External Providers External Provider: OTHER-OTHER Next Contact Date: Service Request Date: Service Type: Resolution: Reviewer: Comments: Last DP export: 09/30/18 7:57 pm Patient Name: JOANNE GREEN Page [phone] at 1139 All edits/amendments must be made on the electronic document DICTATION DATE: 10/03/181137 SUPPLIER QUALITY ENGINEERING MANAGER: [place] 10/03/181137 RPT#: [id number] DC DATE: STATUS: ADM IN [facility] [address] [place] [address] END OF REPORT
--- NOTE | 2018-10-03 11:46 | MORECARE ---
CASE MANAGEMENT DISCHARGE SUMMARY PATIENT: JOANNE GREEN UNIT: [id number] ADM DATE: 09/29/18 AGE: 58 : 60 SEX: M ROOM/BED: D.2229 AUTHOR: BARBER,DOC PHYSICIAN: REFERRING PHYSICIAN: SONIA CHRISTIANSON MD DATE OF SERVICE: 10/03/18 Discharge Plan Patient Name: JOANNE GREEN Facility: [facility]:[place] : 1960 Planned Disposition: Home Anticipated Discharge Date: Discharge Date: Expected LOS: Initial Reviewer: [email or web address] Initial Review Date: 09/29/2018 Generated: 10/03/18 12:45 pm Comments DCP- Discharge Planning Updated by [email or web address]: Evi Guzman on 09/30/18 7:[address] Patient Name: JOANNE GREEN Admission Status: ER Accout number: [id number] Admission Date: 09-29-2018 : 1960 Admission Diagnosis:OTHER PULMONARY EMBOLISM WITHOUT ACUTE COR PULMONALE Attending: SONIA CHRISTIANSON Current LOS: 1 Anticipated DC Date: Planned Disposition: Home Primary Insurance: [facility] Discharge Planning Comments: CM met with patient at bedside about discharge planning / needs. Patient states he lives alone. Patient states he plans to discharge to his home. States he will have family transport him home upon discharge. Patient states he has home health come to evaluate him but they haven't started yet. He doesn't recall which provider has evaluated him. If patient is still requiring 02 he may need walk test. Denies any discharge needs or concerns at this time.CM will continue to follow and assist as needed with discharge planning / needs. Adjunct Professor Of Voice: Evi Guzman DCPIA - Discharge Planning Initial Assessment Updated by [id number]: Evi Guzman on 09/30/18 8:46 pm * Is the patient Alert and Oriented? Yes * How many steps to enter\exit or inside your home? * PCP Brayan Newell * Pharmacy [facility] * Preadmission Environment Home Alone * ADLs Independent * Other Equipment walker, shower chair, elevated toilet, * List name and contact numbers for known caregivers / representatives who currently or will assist patient after discharge: Jaime Isaac [phone] * Verbal permission to speak to the caregivers and representatives has been obtained from the patient. N/A * Community resources currently utilized Home Health * Please name any agencies selected above. unknown provider - only evaluated thus far * Additional services required to return to the preadmission environment? No * Can the patient safely return to the preadmission environment? Yes * Has this patient been hospitalized within the prior 30 days at any hospital? Yes External Providers External Provider: [facility] Next Contact Date: Service Request Date: Service Type: Resolution: Reviewer: Comments: Last DP export: 10/03/18 10:39 am Patient Name: JOANNE GREEN Page 79511 at 1146 All edits/amendments must be made on the electronic document DICTATION DATE: 10/03/18 1145 ELECTRIC METER TECHNICIAN: [place] 10/03/18 1145 RPT#: [id number] DE DATE: STATUS: ADM IN [address] [place] [address] END OF REPORT
--- NOTE | 2018-10-03 11:53 | MORECARE ---
CASE MANAGEMENT DISCHARGE SUMMARY PATIENT: JOANNE GREEN UNIT: [id number] ADM DATE: 09/29/18 AGE: 58 : 60 SEX: M ROOM/BED: D.2229 AUTHOR: ANJELICA BLANDON PHYSICIAN: REFERRING PHYSICIAN: SONIA CHRISTIANSON MD DATE OF SERVICE: 10/03/18 Discharge Plan Patient Name: JOANNE GREEN Facility: [facility]:[place] : 1960 Planned Disposition: Home Anticipated Discharge Date: Discharge Date: Expected LOS: Initial Reviewer: [email or web address] Initial Review Date: 09/29/2018 Generated: 10/03/18 12:53 pm Comments DCP- Discharge Planning Updated by [email or web address]: Johanne Sargent on 10/03/18 10:[address] Walk test completed. I met with patient to discuss which DME company he would like. He states this is all new to him and he would like me to talk to his home health agency for their recommendation. I called and spoke to [facility] and she states they use [facility]. I spoke with the patient and he would like to use [facility] and continue the same home health agency he has had. I faxed clinical to both [facility] and the home health agency. He will need his portable oxygen delivered prior to discharge. CM will continue to follow and assist with discharge planning/needs. [facility] - [facility] - DCP- Discharge Planning Updated by [email or web address]: Evi Guzman on 09/30/18 7:[address] Patient Name: JOANNE GREEN Admission Status: ER Accout number: [id number] Admission Date: 09-29-2018 : 1960 Admission Diagnosis:OTHER PULMONARY EMBOLISM WITHOUT ACUTE COR PULMONALE Attending: SONIA CHRISTIANSON Current LOS: 1 Anticipated DC Date: Planned Disposition: Home [facility]: [facility] Discharge Planning Comments: CM met with patient at bedside about discharge planning / needs. Patient states he lives alone. Patient states he plans to discharge to his home. States he will have family transport him home upon discharge. Patient states he has home health come to evaluate him but they haven't started yet. He doesn't recall which provider has evaluated him. If patient is still requiring 02 he may need walk test. Denies any discharge needs or concerns at this time.CM will continue to follow and assist as needed with discharge planning / needs. Supervisor Word Processing: Evi Guzman DCPIA - Discharge Planning Initial Assessment Updated by [email or web address]: Evi Guzman on 09/30/18 8:46 pm * Is the patient Alert and Oriented? Yes * How many steps to enter\exit or inside your home? * PCP Brayan Newell * Pharmacy [facility] * Preadmission Environment Home Alone * ADLs Independent * Other Equipment walker, shower chair, elevated toilet, * List name and contact numbers for known caregivers / representatives who currently or will assist patient after discharge: Jaime Isaac [phone] * Verbal permission to speak to the caregivers and representatives has been obtained from the patient. N/A * Community resources currently utilized Home Health * Please name any agencies selected above. unknown provider - only evaluated thus far * Additional services required to return to the preadmission environment? No * Can the patient safely return to the preadmission environment? Yes * Has this patient been hospitalized within the prior 30 days at any hospital? Yes Last DP export: 10/03/18 10:46 am Patient Name: JOANNE GREEN Page 12754 at 1153 All edits/amendments must be made on the electronic document DICTATION DATE: 10/03/18 115 GLUER MACHINE OPERATOR: [place] 10/03/18 1152 RPT#: [id number] DC DATE: STATUS: ADM IN [facility] [address] [place] [address] END OF REPORT
[2018-10-03] MEDS ORDERED: OMNICEF300 MG PO (12:15)
[2018-10-03] MEDS ORDERED: BROVANA15 MCG/2 M INH (12:16)
[2018-10-03] MEDS ORDERED: TESSALON PERLE100 MG PO (12:16)
[2018-10-03] MEDS ORDERED: IPRAT-ALBUT 0.5-3 ML UPD (12:16)
[2018-10-03] MEDS ORDERED: FLORAJEN3 CAPS460 MG PO (12:17)
[2018-10-03] MEDS ORDERED: MUCINEX DM ER1 EAC1 PO (12:17)
[2018-10-03] MEDS ORDERED: PULMICORT0.5 MG/21 UPD (12:17)
[2018-10-03] MEDS ORDERED: PREDNISONE10 MG PO (12:18)
[2018-10-03] MEDS ORDERED: ELIQUIS5 MG PO (12:19)
[2018-10-03 12:28] VITALS: BP 136/64
--- NOTE | 2018-10-03 13:11 | MORECARE ---
CASE MANAGEMENT DISCHARGE SUMMARY PATIENT: JOANNE GREEN UNIT: [id number] ADM DATE: 09/29/18 AGE: 58 : 60 SEX: M ROOM/BED: D.2229 AUTHOR: BARBER,DOC PHYSICIAN: REFERRING PHYSICIAN: SONIA CHRISTIANSON MD DATE OF SERVICE: 10/03/18 Discharge Plan Patient Name: JOANNE GREEN Facility: [facility]:[place] : 1960 Planned Disposition: Home Anticipated Discharge Date: Discharge Date: Expected LOS: Initial Reviewer: [email or web address] Initial Review Date: 09/29/2018 Generated: 10/03/18 2:11 pm Comments DCP- Discharge Planning Updated by [email or web address]: Johanne Sargent on 10/03/18 12:[address] I spoke with Heather at [employer] and her tractor driver teamster is on the way with his portable oxygen then he will meet him at his house with nebulizer and home oxygen set up. He is going home today with home health. CM will continue to follow and assist with discharge planning/needs. DCP- Discharge Planning Updated by [id number]: Johanne Sargent on 10/03/18 10:[address] Walk test completed. I met with patient to discuss which DME company he would like. He states this is all new to him and he would like me to talk to his home health agency for their recommendation. I called and spoke to [facility] and she states they use [facility]. I spoke with the patient and he would like to use [facility] and continue the same home health agency he has had. I faxed clinical to both [facility] and the home health agency. He will need his portable oxygen delivered prior to discharge. CM will continue to follow and assist with discharge planning/needs. [facility] - [facility] - DCP- Discharge Planning Updated by [id number]: Evi Guzman on 09/30/18 7:[address] Patient Name: JOANNE GREEN Admission Status: ER Accout number: [id number] Admission Date: 09-29-2018 : 1960 Admission Diagnosis:OTHER PULMONARY EMBOLISM WITHOUT ACUTE COR PULMONALE Attending: SONIA CHRISTIANSON Current LOS: 1 Anticipated DC Date: Planned Disposition: Home Primary Insurance: [employer] [facility] Discharge Planning Comments: CM met with patient at bedside about discharge planning / needs. Patient states he lives alone. Patient states he plans to discharge to his home. States he will have family transport him home upon discharge. Patient states he has home health come to evaluate him but they haven't started yet. He doesn't recall which provider has evaluated him. If patient is still requiring 02 he may need walk test. Denies any discharge needs or concerns at this time.CM will continue to follow and assist as needed with discharge planning / needs. Top Frame Maker: Evi Guzman DCPIA - Discharge Planning Initial Assessment Updated by [email or web address]: Evi Guzman on 09/30/18 8:46 pm * Is the patient Alert and Oriented? Yes * How many steps to enter\exit or inside your home? * PCP Brayan Newell * [facility] * Preadmission Environment Home Alone * ADLs Independent * Other Equipment walker, shower chair, elevated toilet, * List name and contact numbers for known caregivers / representatives who currently or will assist patient after discharge: Jaime Isaac [phone] * Verbal permission to speak to the caregivers and representatives has been obtained from the patient. N/A * Community resources currently utilized Home Health * Please name any agencies selected above. unknown provider - only evaluated thus far * Additional services required to return to the preadmission environment? No * Can the patient safely return to the preadmission environment? Yes * Has this patient been hospitalized within the prior 30 days at any hospital? Yes Last DP export: 10/03/18 10:53 am Patient Name: JOANNE GREEN Page [phone] at 1311 All edits/amendments must be made on the electronic document DICTATION DATE: 10/03/18 131 DIRECTOR MEDIA: [place] 10/03/181309 RPT#: [id number] DC DATE: STATUS: ADM IN [facility] [address] [place] [address] END OF REPORT
[2018-10-03] MEDS ORDERED: BREO ELLIPTA 21 EACH PO (13:22)
--- NOTE | 2018-10-03 14:40 | MORECARE ---
CASE MANAGEMENT DISCHARGE SUMMARY PATIENT: JOANNE GREEN UNIT: [id number] ADM DATE: 09/29/18 AGE: 58 : 60 SEX: M ROOM/BED: D.2229 AUTHOR: BARBER,DOC PHYSICIAN: REFERRING PHYSICIAN: SONIA CHRISTIANSON MD DATE OF SERVICE: 10/03/18 Discharge Plan Patient Name: JOANNE GREEN Facility: [facility]:[place] : 1960 Planned Disposition: Home Anticipated Discharge Date: Discharge Date: Expected LOS: Initial Reviewer: [email or web address] Initial Review Date: 09/29/2018 Generated: 10/03/18 3:40 pm Comments DCP- Discharge Planning Updated by [email or web address]: Johanne Sargent on 10/03/18 1:[address] Signed oxygen and nebulizer faxed back to [employer] at [phone]. I called and they state their driver lifter of sanitation truck should be here with the portable any time. CM will continue to follow and assist with discharge planning/needs. DCP- Discharge Planning Updated by [email or web address]: Johanne Sargent on 10/03/18 12:[address] I spoke with Heather at [employer] and her driver lifter of sanitation truck is on the way with his portable oxygen then he will meet him at his house with nebulizer and home oxygen set up. He is going home today with home health. CM will continue to follow and assist with discharge planning/needs. DCP- Discharge Planning Updated by [email or web address]: Johanne Sargent on 10/03/18 10:[address] Walk test completed. I met with patient to discuss which DME company he would like. He states this is all new to him and he would like me to talk to his home health agency for their recommendation. I called and spoke to [facility] and she states they use [facility]. I spoke with the patient and he would like to use [facility] and continue the same home health agency he has had. I faxed clinical to both [facility] and the home health agency. He will need his portable oxygen delivered prior to discharge. CM will continue to follow and assist with discharge planning/needs. [employer] [facility] - [facility] - DCP- Discharge Planning Updated by [email or web address]: Evi Guzman on 09/30/18 7:[address] Patient Name: JOANNE GREEN Admission Status: ER Accout number: [id number] Admission Date: 09-29-2018 : 1960 Admission Diagnosis:OTHER PULMONARY EMBOLISM WITHOUT ACUTE COR PULMONALE Attending: SONIA CHRISTIANSON Current LOS: 1 Anticipated DC Date: Planned Disposition: Home Primary Insurance: [employer] POS Discharge Planning Comments: CM met with patient at bedside about discharge planning / needs. Patient states he lives alone. Patient states he plans to discharge to his home. States he will have family transport him home upon discharge. Patient states he has home health come to evaluate him but they haven't started yet. He doesn't recall which provider has evaluated him. If patient is still requiring 02 he may need walk test. Denies any discharge needs or concerns at this time.CM will continue to follow and assist as needed with discharge planning / needs. Sound Printer: Evi Guzman DCPIA - Discharge Planning Initial Assessment Updated by [email or web address]: Evi Guzman on 09/30/18 8:46 pm * Is the patient Alert and Oriented? Yes * How many steps to enter\exit or inside your home? * PCP Brayan Newell * Pharmacy [facility] * Preadmission Environment Home Alone * ADLs Independent * Other Equipment walker, shower chair, elevated toilet, * List name and contact numbers for known caregivers / representatives who currently or will assist patient after discharge: Jaime Isaac [phone] * Verbal permission to speak to the caregivers and representatives has been obtained from the patient. N/A * Community resources currently utilized Home Health * Please name any agencies selected above. unknown provider - only evaluated thus far * Additional services required to return to the preadmission environment? No * Can the patient safely return to the preadmission environment? Yes * Has this patient been hospitalized within the prior 30 days at any hospital? Yes Last DP export: 10/03/18 12:11 pm Patient Name: JOANNE GREEN Page [id number] at 1440 All edits/amendments must be made on the electronic document DICTATION DATE: 10/03/181439 SUPERVISOR AREA: [place] 10/03/181439 RPT#: [id number] DC DATE: STATUS: ADM IN [facility] [address] [place] [address] END OF REPORT
--- NOTE | 2018-10-03 15:15 | NUR ---
IV DC'ED OUT OF RIGHT FOREARM. TIP INTACT. BANDAGE REAPPLIED. DISCHARGE INSTRUCTIONS GIVEN AND HE VOICED UNDERSTANDING. NO FURTHER NEEDS
[2018-10-04 08:21] LABS: FOLATE (FOLIC ACID) - SERUM 13.8 ng/mL (>3.0)
--- NOTE | 2018-10-05 11:11 | MORECARE ---
CASE MANAGEMENT DISCHARGE SUMMARY PATIENT: JOANNE GREEN UNIT: [id number] ADM DATE: 09/29/18 AGE: 58 : 60 SEX: M ROOM/BED: D.2229 AUTHOR: BARBER,DOC PHYSICIAN: REFERRING PHYSICIAN: OSNIA CHRISTIANSON MD DATE OF SERVICE: 10/05/18 Discharge Plan Patient Name: JOANNE GREEN Facility: [facility]:[place] : 1960 Planned Disposition: Home Anticipated Discharge Date: Discharge Date: 10/03/2018 Expected LOS: 0 Initial Reviewer: [id number] Initial Review Date: 09/29/2018 Generated: 10/05/18 12:10 pm Comments DCP- Discharge Planning Updated by [email or web address]: Johanne Sargent on 10/03/18 1:[address] Signed oxygen and nebulizer faxed back to [facility] at [phone]. I called and they state their waste collection driver should be here with the portable any time. CM will continue to follow and assist with discharge planning/needs. DCP- Discharge Planning Updated by [email or web address]: Johanne Sargent on 10/03/18 12:[address] I spoke with Heather at [employer] and her waste collection driver is on the way with his portable oxygen then he will meet him at his house with nebulizer and home oxygen set up. He is going home today with home health. CM will continue to follow and assist with discharge planning/needs. DCP- Discharge Planning Updated by [email or web address]: Johanne Garnetttasha on 10/03/18 10:[address] Walk test completed. I met with patient to discuss which DME company he would like. He states this is all new to him and he would like me to talk to his home health agency for their recommendation. I called and spoke to [facility] and she states they use [facility]. I spoke with the patient and he would like to use [facility] and continue the same home health agency he has had. I faxed clinical to both [facility] and the home health agency. He will need his portable oxygen delivered prior to discharge. CM will continue to follow and assist with discharge planning/needs. [facility] - [facility] - DCP- Discharge Planning Updated by [email or web address]: Evi Guzman on 09/30/18 7:[address] Patient Name: JOANNE GREEN Admission Status: ER Accout number: [id number] Admission Date: 09-29-2018 : 1960 Admission Diagnosis:OTHER PULMONARY EMBOLISM WITHOUT ACUTE COR PULMONALE Attending: SONIA CHRISTIANSON Current LOS: 1 Anticipated DC Date: Planned Disposition: Home Primary Insurance: [employer] POS Discharge Planning Comments: CM met with patient at bedside about discharge planning / needs. Patient states he lives alone. Patient states he plans to discharge to his home. States he will have family transport him home upon discharge. Patient states he has home health come to evaluate him but they haven't started yet. He doesn't recall which provider has evaluated him. If patient is still requiring 02 he may need walk test. Denies any discharge needs or concerns at this time.CM will continue to follow and assist as needed with discharge planning / needs. P[employer] Farm Laborer: Evi Guzman DCPIA - Discharge Planning Initial Assessment Updated by [email or web address]: Evi Guzman on 09/30/18 8:46 pm * Is the patient Alert and Oriented? Yes * How many steps to enter\exit or inside your home? * PCP Brayan Newell * Pharmacy [facility] * Preadmission Environment Home Alone * ADLs Independent * Other Equipment walker, shower chair, elevated toilet, * List name and contact numbers for known caregivers / representatives who currently or will assist patient after discharge: Jaime Isaac [phone] * Verbal permission to speak to the caregivers and representatives has been obtained from the patient. N/A * Community resources currently utilized Home Health * Please name any agencies selected above. unknown provider - only evaluated thus far * Additional services required to return to the preadmission environment? No * Can the patient safely return to the preadmission environment? Yes * Has this patient been hospitalized within the prior 30 days at any hospital? Yes Last DP export: 10/03/18 1:40 pm Patient Name: JOANNE GREEN Page [id number] at 1111 All edits/amendments must be made on the electronic document DICTATION DATE: 10/05/18 111 POST CLOSING SPECIALIST: [place] 10/05/18 1110 RPT#: [id number] DC DATE:10/03/18 STATUS: DIS IN [facility] [address] [place] [address] END OF REPORT
== END 2018-10-03 15:21 | disposition home health service (06) | DRG 175 ==
LOC: D.ER 14:37 → D.ICU 17:19 → D.MS 10-01 14:12
PROVIDERS: Family Medicine; Internal Medicine Hematology & Oncology; Internal Medicine Pulmonary Disease; ADMIT Internal Medicine Nephrology; ATTEND Internal Medicine Nephrology
DX: I26.99 Other pulmonary embolism without acute cor pulmonale (principal); J96.01 Acute respiratory failure with hypoxia; J44.1 Chronic obstructive pulmonary disease with (acute) exacerbation; I24.8 Other forms of acute ischemic heart disease; N17.9 Acute kidney failure, unspecified; C90.00 Multiple myeloma not having achieved remission; D64.9 Anemia, unspecified